=== PATIENT | female | born 1955 | race Caucasian/White ===

== ENCOUNTER 2017-04-24 07:47 | Day surgery (SDC) | payer BC ==
[2017-04-16 11:12] VITALS: BMI 29.0
[2017-04-24] MEDS ORDERED: MIDAZOLAM HCL 2 MG/2 ML SINGLE DOSE VIAL ONE ×5 (09:43→10:25)
[2017-04-24] MEDS ORDERED: ceFAZolin SODIUM 1 GM VIAL IVPB ONE (09:51)
[2017-04-24] MEDS ORDERED: SUCCINYLCHOLINE CHLORIDE 200 MG/10 ML VIAL ONE (09:58)
[2017-04-24] MEDS ORDERED: PROPOFOL 20 ML ONE (09:58)
[2017-04-24] MEDS ORDERED: ceFAZolin SODIUM 1 GM VIAL ONE (10:07)
[2017-04-24] MEDS ORDERED: LIDOCAINE HCL 1%, 10 MG/ML (20ML VIAL) INF ONE ×3 (10:15)
[2017-04-24] MEDS ORDERED: LIDOCAINE HCL 1%, 10 MG/ML (20ML VIAL) ONE (10:56)
[2017-04-24] MEDS ORDERED: ONDANSETRON 4 MG/2 ML VIAL IVPUSH PRN (12:13)
[2017-04-24] MEDS ORDERED: oxyCODONE HCL 5 MG TABLET PO PRN ×2 (12:13→13:43)
[2017-04-24] MEDS ORDERED: PROMETHAZINE HCL 25 MG/1 ML VIAL IVPUSH PRN (12:13)
[2017-04-24] MEDS ORDERED: LACTATED RINGERS SOLUTION 1,000 ML IV SCH (12:15)
[2017-04-24 14:30] VITALS: TEMP 97.8
[2017-04-24 14:34] VITALS: BP 130/70; PULSE 70
--- NOTE | 2017-04-30 10:23 | PROC ---
Procedure Note Procedure: Date of service: 04/24/2017 Preoperative Diagnosis: Failed Back Surgery Syndrome, Lumbar Radiculopathy, Lumbar Spinal Stenosis Postoperative Diagnosis: Same Procedure Performed: 1) Insertion of spinal cord stimulator leads x 2 2) Fluoroscopic needle guidance 3) Initial programming of device Anesthesia: Local (2% Lidocaine )/MAC Anesthesiologist: Procedure: I discussed with the patient in detail about the risks, benefits and alternatives to treatment not only limited to infection, headache, numbness, weakness and injury to nerves, spinal cord, blood vessels and muscles. The patient understood, agreed and signed the written consent. The patient was positioned prone on the fluoroscopy table. The patient was prepped and draped in the usual sterile fashion using DuraPrep and a fenestrated drape. Routine vital sign monitors were applied and anesthesia was initiated. The patient remained conversant throughout the procedure. The area to be injected was determined using fluoroscopy. Local anesthetic was given by raising a skin wheal and going down to the hub of a 25-gauge 1.5-inch needle. The 25-gauge 3.5- inch needle was used to anesthetize down to just short of the ligamentum flavum to be entered. A 14-gauge Tuohy needle was then advanced to contact the right L1 -L2 level. It was walked off in a superior medial direction until it entered the epidural space using loss of resistance to saline and air. The high - frequency spinal cord stimulator lead was advanced through the Tuohy needle and directed to rest the tip at the T9. The same procedure was repeated in detail for the left side to insert a second lead within the epidural space to reside at T8 level. Lead position was confirmed both in AP and Lateral views under Fluoroscopy. The needles were withdrawn leaving the leads in place and were then secured to the patients skin using Stay-Fix adhesive bandages and Tegaderm. The patients back was cleaned. The patient was allowed to fully recover from anesthesia and taken to the recovery room in good position. The procedure was completed without complications and was tolerated well. The patient was monitored after the procedure. Stimulation programming and testing of the device was done in the recovery room by the device sales representative electric service. The patient (or responsible alliance party) was given post-procedure and discharge instructions to follow at home. The patient was discharged in stable condition. A follow-up appointment was made. If there is any problem, call my office at or report to Emergency Room. Yobani Post M.D.
== END 2017-04-24 14:35 | disposition home or self-care (01) ==
LOC: JASU-SURG 07:47
PROVIDERS: ATTEND Physical Medicine & Rehabilitation
PROC: 4B00XVZ Measurement of Central Nervous Stimulator, External Approach (ICD-10-PCS; 2017-04-24)
PROC: 00HU3MZ Insertion of Neurostimulator Lead into Spinal Canal, Percutaneous Approach (ICD-10-PCS; principal; 2017-04-24 09:30)
DX: M48.061 Spinal stenosis, lumbar region without neurogenic claudication (principal); M54.16 Radiculopathy, lumbar region; M96.1 Postlaminectomy syndrome, not elsewhere classified; G89.29 Other chronic pain
CPT/HCPCS: 63650; 95972; L8680; 76000-TC; 94760

== ENCOUNTER 2019-05-23 08:55 | Day surgery (SDC) | payer BC ==
[2019-05-22 16:27] VITALS: BMI 27.4
[2019-05-23 10:44] VITALS: TEMP 98.4
[2019-05-23 11:16] VITALS: BP 124/66; PULSE 70
--- NOTE | 2019-05-26 16:39 | PATH ---
Surgical Pathology Report Patient Name: MAIA SORIANO [facility]. Rec. #: [id number] /Age/Gender: 1955 (Age: 63) / F Account: [id number] Location: [facility]-ENDOSCOPY Taken: 05/23/2019 Received: 05/23/2019 Reported: 05/26/2019 Physicians: Sandeep Carlos M.D. Specimen(s) Received ASCENDING COLON POLYP Clinical History History of colon polyp Postoperative diagnosis: Polyps, hemorrhoids Final Diagnosis ASCENDING COLON POLYP, POLYPECTOMY: TUBULAR ADENOMA. Electronically Signed Garret Mistry M.D. Gross Description Received in formalin, labeled "biopsy ascending colon" is a maxwell, irregular portion of soft tissue measuring 0.3 cm. in greatest dimension. The specimen is submitted in toto in one cassette. /05/23/2019 [facility]05/23/2019
== END 2019-05-23 11:22 | disposition home or self-care (01) ==
LOC: JASU-ENDO 08:55
PROVIDERS: ATTEND Internal Medicine Gastroenterology
PROC: 0DBK8ZX Excision of Ascending Colon, Via Natural or Artificial Opening Endoscopic, Diagnostic (ICD-10-PCS; principal; 2019-05-23 10:00)
DX: Z86.010 Personal history of colon polyps (principal); D12.2 Benign neoplasm of ascending colon; K64.8 Other hemorrhoids; Z80.0 Family history of malignant neoplasm of digestive organs; Z83.71 Family history of colonic polyps; Z85.3 Personal history of malignant neoplasm of breast
CPT/HCPCS: 88305-TC

== ENCOUNTER 2019-05-29 06:58 | Day surgery (SDC) | payer BC ==
[2019-05-27 17:26] VITALS: BMI 27.4
[2019-05-29] MEDS ORDERED: LIDOCAINE HCL 1%, 10 MG/ML (20ML VIAL) ONE ×2 (08:46→10:22)
[2019-05-29] MEDS ORDERED: HEPARIN NA (PORCINE) 5,000 UNITS/ML 1ML VIAL ONE (08:46)
[2019-05-29] MEDS ORDERED: ONDANSETRON 4 MG/2 ML VIAL IVPUSH PRN (09:23)
[2019-05-29] MEDS ORDERED: oxyCODONE HCL 5 MG TABLET PO PRN (09:23)
[2019-05-29] MEDS ORDERED: LACTATED RINGERS SOLUTION 1,000 ML IV SCH (09:30)
[2019-05-29] MEDS ORDERED: PROPOFOL 20 ML ONE (09:51)
[2019-05-29] MEDS ORDERED: SUCCINYLCHOLINE CHLORIDE 200 MG/10 ML SYRINGE ONE (09:51)
[2019-05-29] MEDS ORDERED: MIDAZOLAM HCL 2 MG/2 ML SINGLE DOSE VIAL ONE ×4 (09:52→11:09)
[2019-05-29] MEDS ORDERED: ceFAZolin SODIUM 1 GM VIAL ONE (09:54)
[2019-05-29] MEDS ORDERED: DEXAMETHASONE SOD PHOSPHATE 4 MG/1 ML VIAL ONE (09:54)
[2019-05-29] MEDS ORDERED: ONDANSETRON 4 MG/2 ML VIAL ONE ×2 (09:54→12:31)
[2019-05-29] MEDS ORDERED: ceFAZolin 2 GRAM PREMIX BAG IVPB ONE (10:17)
[2019-05-29] MEDS ORDERED: LIDOCAINE HCL 1%, 10 MG/ML (20ML VIAL) NR ONE ×4 (10:17→11:28)
[2019-05-29] MEDS ORDERED: HEPARIN NA (PORCINE) 5,000 UNITS/ML 1ML VIAL SQ ONE (10:17)
[2019-05-29 14:36] VITALS: TEMP 98.5
[2019-05-29 14:55] VITALS: BP 122/69; PULSE 85
--- NOTE | 2019-06-01 17:00 | OP ---
DATE OF OPERATION: 05/29/2019 PREOPERATIVE DIAGNOSES: Low back pain, lumbar radiculopathy, status post lumbar fusion, placement of spinal cord stimulator, with persistent pain. POSTOPERATIVE DIAGNOSES: Low back pain, lumbar radiculopathy, status post lumbar fusion, placement of spinal cord stimulator, with persistent pain. PROCEDURE: Bone marrow aspiration concentrate injection to L4-L5 and L5-S1 disks, L3 to S1 facet joints bilaterally, and bilateral sacroiliac joint injection. ANESTHESIA: Local and MAC. PROCEDURE: I discussed with her in detail about risks, benefits, alternatives of treatment, not only limited to infection, fever, injury nerves or blood vessels, fracture, swelling, numbness, tingling, fever, headache, anything can happen. The patient understood, agreed, and signed the written consent. The patient was placed in the prone position, head, abdomen, and legs supported with pillows. Lumbosacral area was prepped, draped in a sterile fashion. From the left iliac crest on the posterior part, 55 mL of bone marrow aspirate was done. Aspirate was centrifuged, 10 mL was collected. Then 1 mL of bone marrow aspirate concentrate was injected at L4-L5 disk level under fluoroscopy. Similar procedure repeated at L5-S1 disk, bilateral lumbar facet intraarticular injection, and also injection in both sacroiliac joints under fluoroscopy. Bleeding was checked. Sterile bandage was placed. Patient tolerated procedure well. There was no immediate complication. Patient was transferred to [facility]. Patient was observed. There was no neurological problem or any other complication. As per [facility] criteria, patient was discharged. Prior to aspiration, antibiotic was given IV and also pain medication and Antivert was given on discharge. Patient was told to apply ice. If any problem, call me or report to ER. Followup appointment was given. CPT code 0232T Gail ADLER/[id number] [facility]ENT[facility]ristine
== END 2019-05-29 14:10 | disposition home or self-care (01) ==
LOC: JASU-SURG 06:58
PROVIDERS: ATTEND Physical Medicine & Rehabilitation
PROC: 3E0T3GC Introduction of Other Therapeutic Substance into Peripheral Nerves and Plexi, Percutaneous Approach (ICD-10-PCS; 2019-05-29)
PROC: BR16YZZ Fluoroscopy of Lumbar Facet Joint(s) using Other Contrast (ICD-10-PCS; 2019-05-29)
PROC: 07DS3ZZ Extraction of Vertebral Bone Marrow, Percutaneous Approach (ICD-10-PCS; principal; 2019-05-29 09:30)
DX: M54.16 Radiculopathy, lumbar region (principal); M54.5 Low back pain; Z98.890 Other specified postprocedural states; Z98.1 Arthrodesis status
CPT/HCPCS: 0232T; 64493; 64494; 64495; 76000-TC-FY; 94760; J1644

== ENCOUNTER 2023-05-18 13:08 | Inpatient (IN) | payer BC ==
[2023-05-18 14:57] LABS: HEMATOCRIT 35.7 % (32.4-45.2); HEMOGLOBIN 12.4 G/dL (10.7-15.3); MCHC 34.6 g/dl (32.0-36.0); MEAN CELL VOLUME 136.8 fl (80-96); MEAN PLT VOLUME 8.2 fl (7.5-11.1); PLATELET COUNT 255.2 10^3/uL (134-434); RBC 2.61 10^6/uL (3.60-5.2); RDW 13.9 % (11.6-15.6)
[2023-05-18 14:58] LABS: MCH 47.3 pg (25.7-33.7)
[2023-05-18 15:04] LABS: PLATELET ESTIMATE ADEQUATE
[2023-05-18 15:05] LABS: MACROCYTOSIS FEW
[2023-05-18 15:22] LABS: INR 0.86 (0.83-1.09)
[2023-05-18 15:24] LABS: ACTIVATED PTT 23.7 SECONDS (25.2-36.5)
[2023-05-18] MEDS: LACTATED RINGERS SOLUTION 1000 ML INFUS.BAG IV ONE (15:33)
[2023-05-18 15:47] LABS: PHOSPHOROUS 3.6 (2.5-4.9)
[2023-05-18 15:49] LABS: ALBUMIN 3.3 g/dl (3.4-5.0); BILIRUBIN,TOTAL 0.5 mg/dl (0.2-1); CALCIUM 9.2 mg/dl (8.5-10.1); CREATININE 0.6 mg/dl (0.6-1.3); MAGNESIUM 1.8 mg/dL (1.8-2.4); POTASSIUM 4.1 mmol/L (3.5-5.1); TOT PROT 5.4 g/dl (6.4-8.2)
[2023-05-18] MEDS: CYANOCOBALAMIN (VITAMIN B-12) 1000 MCG/1 ML VIAL IM ONE (16:42)
[2023-05-18] MEDS: FOLIC ACID 1 MG TABLET (FP) PO ONE (16:42)
[2023-05-18 18:14] LABS: N-TERMINAL BNP 292.6 pg/ml (5-125)
[2023-05-18] MEDS ORDERED: THIAMINE HCL 200 MG/2 ML VIAL ONE (20:03)
[2023-05-18] MEDS: THIAMINE HCL 200 MG/2 ML VIAL IVPB SCH (20:06)
[2023-05-19] MEDS: LORazepam 1 MG TABLET PO PRN (01:31)
[2023-05-19] MEDS: ENOXAPARIN NA (PORCINE) 40 MG/0.4 ML DISP.SYRIN SQ SCH (09:00)
[2023-05-19 09:01] LABS: HEMATOCRIT 32.6 % (32.4-45.2); HEMOGLOBIN 10.7 G/dL (10.7-15.3); MCH 45.4 pg (25.7-33.7); MCHC 32.7 g/dl (32.0-36.0); MEAN CELL VOLUME 138.6 fl (80-96); MEAN PLT VOLUME 8.2 fl (7.5-11.1); PLATELET COUNT 245.3 10^3/uL (134-434); RBC 2.35 10^6/uL (3.60-5.2); RDW 14.6 % (11.6-15.6); WHITE BLOOD COUNT 4.9 10^3/uL (4.0-10.8)
[2023-05-19] MEDS: FOLIC ACID 1 MG TABLET (FP) PO SCH (09:01)
[2023-05-19 09:03] LABS: CALCIUM 8.7 mg/dl (8.5-10.1); CREATININE 0.5 mg/dl (0.6-1.3); MAGNESIUM 1.8 mg/dL (1.8-2.4); PHOSPHOROUS 3.7 (2.5-4.9); POTASSIUM 3.8 mmol/L (3.5-5.1)
[2023-05-19] MEDS: CYANOCOBALAMIN 1,000 MCG TABLET (FP) PO SCH (09:04)
[2023-05-19] MEDS: NICOTINE 14 MG/24 HOURS TOPICAL PATCH TD SCH (10:24)
[2023-05-19] MEDS: CEFTRIAXONE 1 GM in DEXTROSE 5%-WATER - 50 ML IVPB SCH (10:24)
[2023-05-19] MEDS ORDERED: ALBUTEROL SO4 HFA INHALER IH PRN (12:33)
[2023-05-19] MEDS: SODIUM CHLORIDE 1,000 ML IV SCH (13:52)
[2023-05-20 14:26] VITALS: BMI 23.9
[2023-05-20] MEDS: ACETAMINOPHEN 325 MG TABLET (FP) PO PRN (20:32)
[2023-05-21] MEDS: LORazepam 1 MG TABLET PO PRN (04:26)
[2023-05-21] MEDS ORDERED: LORazepam 0.5 MG TABLET PO SCH (05:00)
[2023-05-21 08:57] LABS: ALBUMIN 2.9 g/dl (3.4-5.0); BILIRUBIN,TOTAL 0.3 mg/dl (0.2-1); CALCIUM 8.8 mg/dl (8.5-10.1); CREATININE 0.5 mg/dl (0.6-1.3); POTASSIUM 3.7 mmol/L (3.5-5.1); TOT PROT 5.1 g/dl (6.4-8.2)
[2023-05-21 10:58] LABS: BASO % 0.6 % (0-2.0); EOS % 2.4 % (0-4.5); HEMATOCRIT 30.5 % (32.4-45.2); HEMOGLOBIN 10.5 GM/dL (10.7-15.3); LYMPH % 27.5 % (8-40); MCHC 34.5 g/dl (32.0-36.0); MEAN CELL VOLUME 135.9 fl (80-96); MEAN PLT VOLUME 7.5 fl (7.5-11.1); MONO % 7.1 % (3.8-10.2); NEUT % 62.4 % (42.8-82.8); PLATELET COUNT 262 10^3/uL (134-434); RBC 2.24 M/mm3 (3.60-5.2); RDW 16.5 % (11.6-15.6); WHITE BLOOD COUNT 5.2 K/mm3 (4.0-10.0)
[2023-05-21 11:01] LABS: MCH 46.8 pg (25.7-33.7)
[2023-05-21 22:42] VITALS: RESP 17
[2023-05-22] MEDS ORDERED: LORazepam 0.5 MG TABLET PO ONE (05:00)
[2023-05-22 07:01] VITALS: BP 117/75; PULSE 86; TEMP 98
== END 2023-05-22 13:51 | disposition home or self-care (01) | DRG 563 ==
LOC: FER 13:08 → FM/S 18:02 → UNDOADMIN 21:39 → FM/S 21:39
PROVIDERS: ADMIT Internal Medicine
DX: S92.334A Nondisplaced fracture of third metatarsal bone, right foot, initial encounter for closed fracture (principal); S92.344A Nondisplaced fracture of fourth metatarsal bone, right foot, initial encounter for closed fracture; S92.354A Nondisplaced fracture of fifth metatarsal bone, right foot, initial encounter for closed fracture; D52.0 Dietary folate deficiency anemia; F17.210 Nicotine dependence, cigarettes, uncomplicated; F10.90 Alcohol use, unspecified, uncomplicated; W19.XXXA Unspecified fall, initial encounter; Y93.9 Activity, unspecified; Y92.89 Other specified places as the place of occurrence of the external cause; Y99.9 Unspecified external cause status
CPT/HCPCS: 0241U-QW; 36415; 70450-TC; 71045-TC-FY; 72125-TC; 73610-TC-RT-FY; 73630-TC-RT-FY; 80048; 80053; 80307; 81003; 81015; 82607; 82746; 82962; 83010; 83615; 83735; 83880; 84100; 84443; 84484; 85025; 85027; 85045; 85610; 85730; 86850; 86900; 86901; 87086; 93005; 97116-GP; 97163-GP; 99285-25